=== PATIENT | female | born 1955 | race Caucasian/White ===

== ENCOUNTER 2016-09-25 13:52 | Emergency (ER) | payer OTHER ==
[~2016-09-25] VITALS: Ht 165.1 cm; Wt 63.0 kg
[2016-09-25 13:52] VITALS: BP 138/75; PULSE 100; RESP 20; TEMP 98.2; O2SAT 98
[~2016-09-25 13:52] MED LIST: HYDR-3533 PO; MACR100C PO; TAMS0.4C67 PO; Z.0.NO CURRENT MEDS; ZOFR4TAB3 SL
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
[2016-09-25] MEDS ORDERED: PANT20TA2 PO (14:04)
[2016-09-25] MEDS ORDERED: VESI5TAB PO (14:04)
[2016-09-25] MEDS ORDERED: ORPHENADRINE INJ 60 MG/2 ML AMP IM ONE (14:15)
[2016-09-25] MEDS ORDERED: IBUP800T23 PO (14:20)
[2016-09-25] MEDS ORDERED: CYCL5TAB PO (14:20)
== END 2016-09-25 14:47 | disposition home or self-care (01) ==
LOC: PHEFT 13:52
DX: S16.1XXA Strain of muscle, fascia and tendon at neck level, initial encounter (principal); T14.8 Other injury of unspecified body region; V49.49XA Driver injured in collision with other motor vehicles in traffic accident, initial encounter; Y93.89 Activity, other specified; Y92.410 Unspecified street and highway as the place of occurrence of the external cause
CPT/HCPCS: 96372; 99284; J2360